=== PATIENT | male | born 1965 | race African-American/Black ===

== ENCOUNTER 2018-11-14 00:35 | Emergency (ER) | payer MEDICAID, OTHER ==
[~2018-11-14] VITALS: Ht 165.1 cm; Wt 107.0 kg
[~2018-11-14 00:35] MED LIST: ACET-3161; ASPI-1159; CYCL10TA7; GABA300T25; HYDR-1348; IBUP-1008; LORA-16; METO25TA3; NITR0.4T; OXYM40TA; PLAVIX; SIMV40TA2; TRAM50TA; [UNRECOGNIZED DRUG - CODE]
[2018-11-14 00:56] VITALS: BP 120/55
== END 2018-11-14 04:04 | disposition left against medical advice (07) ==
LOC: ER 00:35
DX: Z53.21 Procedure and treatment not carried out due to patient leaving prior to being seen by health care provider (principal); M19.90 Unspecified osteoarthritis, unspecified site; I51.9 Heart disease, unspecified; I25.2 Old myocardial infarction; M54.30 Sciatica, unspecified side; Z79.82 Long term (current) use of aspirin; Z96.659 Presence of unspecified artificial knee joint

== ENCOUNTER 2021-05-02 07:58 | Emergency (ER) | payer MEDICAID, OTHER ==
[~2021-05-02] VITALS: Ht 165.1 cm; Wt 107.0 kg
[~2021-05-02 07:58] MED LIST changes: -ASPI-1159; +ASPI-1497
[2021-05-02 09:48] LABS: HEMATOCRIT. 44.3 % (42.0-52.0); HEMOGLOBIN. 14.9 g/dL (14.0-18.0); MEAN CORPUSCULAR HEMOGLOBIN 32.9 pg (28.0-32.0); MEAN CORPUSCULAR VOLUME 97.6 fL (80.0-94.0); MEAN PLATELET VOLUME 8.3 fl (7.4-10.4); PLATELET 298 x1000/uL (130-400); RED BLOOD CELL COUNT 4.54 mill/uL (4.7-6.1); RED CELL DISTRIBUTION WIDTH 13.1 % (11.6-14.6)
[2021-05-02 09:53] LABS: CHLORIDE 106 mEq/L (98-107)
[2021-05-02 10:28] LABS: PLATELET ESTIMATE NORMAL
[2021-05-02 12:00] VITALS: BP 166/86
== END 2021-05-02 12:30 | disposition left against medical advice (07) ==
LOC: ER 07:58 → CANBEDREQ 16:34
DX: R07.9 Chest pain, unspecified (principal); I10 Essential (primary) hypertension; M19.90 Unspecified osteoarthritis, unspecified site; I25.2 Old myocardial infarction; I25.10 Atherosclerotic heart disease of native coronary artery without angina pectoris; M54.30 Sciatica, unspecified side; Z79.82 Long term (current) use of aspirin; Z91.041 Radiographic dye allergy status; Z96.659 Presence of unspecified artificial knee joint
CPT/HCPCS: 36415; 71045; 80053; 80061; 83605; 83880; 84145; 84484; 85025; 87426; 93005; 99285